=== PATIENT | female | born 2000 | race African-American/Black ===

== ENCOUNTER 2024-11-02 17:04 | Emergency (ER) | payer MEDICAID ==
[~2024-11-02] VITALS: Ht 157.5 cm; Wt 59.0 kg
[2024-11-02 17:08] VITALS: O2SAT 100
[2024-11-02 17:22] VITALS: BP 104/63; PULSE 83; RESP 16; TEMP 36.8; O2SAT 100
[2024-11-02 18:18] LABS: CLARITY URINE CLEAR (CLEAR); COLOR URINE YELLOW (YELLOW); GLUCOSE URINE NEGATIVE (NEGATIVE); KETONES URINE TRACE (NEGATIVE); LEUKOCYTE ESTERASE URINE 3+ (NEGATIVE); NITRITE URINE NEGATIVE (NEGATIVE); OCCULT BLOOD URINE NEGATIVE (NEGATIVE); PH URINE 6.5 (4.5-8.0); PROTEIN URINE NEGATIVE (NEGATIVE); SPECIFIC GRAVITY URINE 1.018 (1.005-1.030)
[2024-11-02 18:48] LABS: BACTERIA URINE 2+; RBC URINE 0-2 /hpf (0-2); SQUAMOUS EPITHELIAL CELL URINE 1+ /lpf (RARE/1+)
[2024-11-02] MEDS ORDERED: FLUC150T46 MT (20:18)
[2024-11-02] MEDS ORDERED: NITR100C MT (20:18)
== END 2024-11-02 20:28 | disposition home or self-care (01) ==
LOC: ER 17:04
DX: N39.0 Urinary tract infection, site not specified (principal); B37.9 Candidiasis, unspecified
CPT/HCPCS: 81003; 81025; 87210; 99283